=== PATIENT | female | born 1960 | race Caucasian/White ===

== ENCOUNTER 2018-04-15 12:29 | Inpatient (IN) ==
--- NOTE | 2018-04-15 12:41 | Emergency Department Note ---
ED Disposition Clinical Impression: Acute exacerbation of chronic obstructive airways disease, Hypoxia, Dyspnea and respiratory abnormalities Disposition: Admitted as Observation Condition on Discharge: Fair Referrals: Provider,Carlo, [Primary Care Provider] - Time of Disposition: 14:55 - Critical Care Critical Care Time: No Attestation: On , the high probability of a clinically significant, sudden or life threatening deterioration of the following system(s) required my full and direct attention, intervention and personal management. The time I documented below is in addition to time spent performing reported procedures but includes the following listed in this critical care notation. Medical Decision Making - Medical Records Medical records reviewed: Yes: I reviewed the patient's medical records. - Jos Inquiry Pt receiving controlled substance: No Jos was queried for this patient: No Vital Signs: 04/15/18 12:30 04/15/18 13:17 04/15/18 14:24 Temperature 99.4 F Temperature Source Oral Pulse Rate [Right Radial] 94 H 89 Respiratory Rate 24 Blood Pressure [Right Arm] 121/76 119/70 Blood Pressure Mean [Right Arm] 91 86 Blood Pressure Source [Right Arm] Automatic Cuff Automatic Cuff Blood Pressure Position [Right Arm] Sitting 02 Sat by Pulse Oximetry 90 L 96 91 L Oxygen Delivery Method Room Air Nasal Cannula Room Air Oxygen Flow Rate (LPM) 2 - Lab Data Lab results reviewed: Yes: I reviewed the patient's lab results. Lab Results 04/15/18 12:30: WBC 8.1, RBC 5.20, Hgb 15.6, Hct 47.3 H, MCV 91.1, MCH 30.1, MCHC 33.0, RDW 13.9, Plt Count 322, MPV 7.2 L, Neut % (Auto) 66.0, Lymph % (Auto) 28.7, [place] % (Auto) 4.0, Eos % (Auto) 0.2, Baso % (Auto) 1.1, Neut # (Auto) 5.4, Lymph # (Auto) 2.3, [place] # (Auto) 0.3, Eos # (Auto) 0.0, Baso # (Auto) 0.1 04/15/18 12:30: Sodium 133 L, Potassium 3.8, Chloride 99, Carbon Dioxide 20 L, Anion Gap 17.8 H, BUN 23 H, Creatinine 0.96, Estimated Creat Clear 52, Estimated GFR 60, Est GFR ( Amer) 73, Glucose 92, Calcium 9.5, Total Bilirubin 0.5, AST 27, ALT 28, Alkaline Phosphatase 103, Total Protein 8.8 H, Albumin 4.0, Globulin 4.8 H, Albumin/Globulin Ratio 0.8 L 04/15/18 12:45: Influenza Type A Ag Negative, Influenza Type B Ag Negative 04/15/18 14:07: Specimen Source L radial, O2 % Room air, ABG pH 7.39, ABG pCO2 27.8 L, ABG pO2 61.9 L, ABG HCO3 16.3 L, ABG Total CO2 17.2 L, ABG O2 Saturation 90, ABG Base Excess -8.7 L, Hilario Test Acceptable Result diagrams: 04/15/18 12:30 04/15/18 12:30 Orders (Tests/Meds): ED MEDICATIONS Generic Name Dose Route Start Last Admin Trade Name Freq PRN Reason Stop Dose Admin Albuterol/Ipratropium 3 ml 04/15/18 12:45 04/15/18 13:17 Duoneb 3ml [facility] 05/15/18 12:44 3 ml Q1HP PRN Administration Shortness Of Breath Sodium Chloride 3 ml 04/15/18 12:39 Sodium Chloride 3% 15ml [facility] 05/15/18 12:38 ONCE PRN INDUCE SPUTUM COLLECTION Discontinued Medications Generic Name Dose Route Start Last Admin Trade Name Freq PRN Reason Stop Dose Admin Azithromycin 500 mg 04/15/18 14:01 04/15/18 14:17 Zithromax 250mg Tablet PO 04/15/18 14:02 500 mg ONCE ONE Administration Protocol Budesonide 0.5 mg 04/15/18 13:00 04/15/18 13:16 Pulmicort 0.5mg/2ml [facility] 04/15/18 13:01 0.5 mg ONCE ONE Administration Dexamethasone Sodium Phosphate 20 mg 04/15/18 12:44 04/15/18 12:52 Decadron 4mg/Ml 5ml Mdv IV 04/15/18 12:45 20 mg ONCE ONE Administration Fluticasone Propionate 2 puffs 04/15/18 12:42 04/15/18 13:16 Flovent Hfa 110mcg Inhaler 04/15/18 12:43 Not Given ONCE ONE Protocol Lactated Ringer's 1,000 mls @ 999 mls/hr 04/15/18 12:45 04/15/18 14:17 Lactated Ringer's 1000 Ml Bag IV 04/15/18 13:45 999 mls/hr .Q1H1M MARY JO Administration Sodium Chloride 1,000 mls @ 2,000 mls/hr 04/15/18 12:45 04/15/18 12:52 Sod Chlor 0.9% 1000ml Bag IV 04/15/18 13:14 2,000 mls/hr .Q30M MARY JO Administration Lactated Ringer's 1,000 mls @ 2,000 mls/hr 04/15/18 14:15 Lactated Ringer's 1000 Ml Bag IV 04/15/18 14:44 .Q30M MARY JO Miscellaneous 1 unit 04/15/18 12:42 04/15/18 13:16 Aerochamber/Optihaler MC 04/15/18 12:43 Not Given ONCE ONE ORDERS Category Date Time Status Sputum Culture & Gram Stain Stat Micro 04/15/18 13:05 Received ABG [Arterial Blood Gas] Stat RT 04/15/18 14:07 Ordered - Radiology Data #1 Image(s): Chest Exacerbation of COPD hyperinflation no pneumonia seen - ECG Data Tracing #1 I reviewed this ECG and interpreted as documented below: Heart rate 89 normal sinus rhythm with occasional arrhythmia with short KS interval right axis deviation of 105 incomplete right bundle branch block nonspecific ST-T abnormalities no previous EKG ECG initial impression date: 04/15/18 ECG initial impression time: 12:35 Normal Sinus Rhythm: Yes Conduction abnormalities present: RBBB ECG compared to prior tracings: there are no prior tracings available for comparison - Reevaluation(s) Time: 14:04 Reevaluation #1: No evidence of pneumonia on chest x-ray with significant COPD patient's examination shows significantly improved air movement but oxygenation on room air is 90% patient able to walk around but saturations stays at 88-90% Medical Decision Narrative: Differential diagnosis exacerbation of COPD, bronchitis, viral URI, pneumonia General Adult HPI - General Chief complaint: Shortness of Breath/Dyspnea Stated complaint: shortness of breath Time Seen by Provider: 04/15/18 12:38 Mode of Arrival: Ambulatory Source of Information: Patient - History of Present Illness HPI narrative: Patient complains of flulike symptoms with cough and congestion seen in outpat ient clinic and sent in for evaluation of possible pneumonia. Patient is a smoker no history of high fever. Patient complains pain in upper back when coughing Onset (ago): day(s) (5) - Related Data Home Medications Medication Instructions Recorded Confirmed No Known Home Medications 04/15/18 04/15/18 Allergies Allergy/AdvReac Type Severity Reaction Status Date / Time No Known Allergies Allergy Verified 04/15/18 12:40 [facility] History - Hepatitis A Screen Drug use history?: No High risk sexual behaviors?: No History of sexually transmitted infection?: No Currently employed?: Yes Childcare worker?: No Do you have indoor plumbing?: Yes Do you have electricity?: Yes Does patient meet criteria?: Yes Does patient agree to Hepatitis A vaccine administration?: Yes Attestation statement:: This patient has been screened for Hepatitis A risk factors. I have reviewed the patient's past medical history: Yes Medical History: Reports:: Chronic Obstructive Pulmonary Disease (COPD) ROS Obtained: Yes All systems reviewed & no additional complaints - Constitutional Constitutional: Reports as per HPI, Reports fatigue, Reports malaise - Respiratory Respiratory: Yes as per HPI, Yes non-productive cough Physical Exam Very thin 57-year-old female looking older than her stated age. - General General appearance: alert, in no apparent distress - Head Head exam: atraumatic, normocephalic, normal inspection - Eye Eye exam: Present: normal appearance, PERRL, EOMI - ENT ENT exam: Present: normal exam, normal oropharynx, mucous membranes dry, TM's normal bilaterally, normal external ear exam - Neck Neck exam: Present: normal inspection, full ROM, trachea midline. Absent: meningismus, lymphadenopathy - Chest Chest inspection: Present: normal inspection, symmetric chest wall rise. Absent: tenderness - Respiratory Respiratory exam: Present: wheezes, other (Dry cough bibasilar rhonchi and wheezes). Absent: normal lung sounds bilaterally, respiratory distress - Cardiovascular Cardiovascular exam: Present: regular rate, normal rhythm. Absent: JVD - Abdominal Exam Abdominal exam: Present: soft, normal bowel sounds. Absent: distention, tenderness, guarding - Extremities Exam Extremities exam: Present: normal inspection, full ROM, normal capillary refill. Absent: calf tenderness - Back Exam Back exam: Present: normal inspection. Absent: tenderness - Neurological Exam Neurological exam: Present: alert, oriented X3 - Psychiatric Psychiatric exam: Present: normal affect, normal mood - Skin Skin exam: Present: warm, dry, intact, normal color - Lymphatic Lymphatic Findings: no adenopathy
[2018-04-15 12:58] LABS: Basophils # 0.1 K/mm3 (0-0.2); Basophils % 1.1 % (0.1-2.0); Eosinophils % 0.2 % (0.1-12.0); Hematocrit 47.3 % (37.0-47.0); Hemoglobin 15.6 g/dL (12.2-16.2); Lymphocytes # 2.3 K/mm3 (0.7-4.5); Lymphocytes % 28.7 % (10-50); Mean Corpuscular Hemoglobin 30.1 pg (27.0-31.2); Mean Corpuscular Volume 91.1 fl (81-99); Mean Platelet Volume 7.2 fl (7.4-10.4); Monocytes # 0.3 K/mm3 (0.1-1.0); Neutrophils # 5.4 K/mm3 (1.8-7.8); Platelet Count 322 K/mm3 (142-424); Red Cell Distribution Width 13.9 % (11.5-17.5); White Blood Count 8.1 K/mm3 (4.8-10.8)
[2018-04-15 13:10] LABS: Albumin/Globulin Ratio 0.8 (1.1-1.8); Anion Gap 17.8 mEq/L (5-15); Bilirubin,Total 0.5 mg/dL (0.2-1.0); Calcium 9.5 mg/dL (8.5-10.1); Globulin 4.8 gm/dl (1.3-3.2); Potassium 3.8 mmoL/L (3.5-5.1); Total Protein,Serum 8.8 gm/dL (6.4-8.2)
[2018-04-15 14:21] LABS: ABG Base Excess -8.7 mmol/L (-2.4-2.3); ABG HCO3 16.3 mmhg (22.0-26.0); ABG Oxygen Saturation 90 % (90-100); ABG PCO2 27.8 mmhg (35.0-45.0); ABG PH 7.39 mmol/L (7.35-7.45); ABG PO2 61.9 mmhg (80-100); ABG TCO2 17.2 mmhg (23-27); Allen's Test ACCEPTABLE; Oxygen ROOM AIR %
--- NOTE | 2018-04-15 18:45 | History & Physical Report ---
*Admission Date: 04/15/18 *Chief complaint: Shortness of breath and cough *History of present illness: 57-year-old white female who has been to the urgent treatment clinic at the [facility] a couple times over the past weeks with cough and congestion. Diagnosed with bronchitis and given an inhaler. However today was hypoxic at the clinic and brought to the emergency department where she was found to have chronic bronchitis appearance on chest x-ray and found to be hypoxic with O2 saturations in the 87% range. Leukocytosis was not noted but she was noted to be mildly acidotic on admission BMP testing. Admitted to hospital for neb treatments, steroids and enhanced pulmonary toilet. She denies recent fever or sputum production, has been a smoker for many years. [facility] History I have reviewed the patient's past medical history: Yes Medical History: Reports:: Chronic Obstructive Pulmonary Disease (COPD) Denies:: Cancer, Diabetes Mellitus Type 1, Diabetes Mellitus Type 2, MRSA Other Surgeries: Yes: , Tubal Ligation Amputation: No Fractures: No - *Social History Smoking Status: Current every day smoker Tobacco Type: cigarettes Alcohol Intake: never Substance Use Type: marijuana Occupational Status: employed - Psychiatric History Expresses thoughts of harming self/others: None Suicide Plan Description: No Plan Review of Systems - Review of Systems Review of systems:: pertinent systems reviewed and negative unless documented below - Constitutional Reports body ache(s), Reports chills, Denies anorexia - Eyes Denies blind spots, Denies blurry vision - ENT Denies abnormal hearing, Denies bleeding gums - *Cardiovascular Reports shortness of breath, Reports shortness of breath with activity, Denies chest pain, Denies chest pain at rest, Denies irregular heart rhythm, Denies leg swelling - *Respiratory Reports change in phlegm color, Reports chest congestion, Reports cough - *Gastrointestinal Denies abdominal pain, Denies belching, Denies bloating Meds Home Medications Medication Instructions Recorded Confirmed Type No Known Home Medications 04/15/18 04/15/18 History Allergies Allergy/AdvReac Type Severity Reaction Status Date / Time No Known Allergies Allergy Verified 04/15/18 12:40 Exam Vital signs and Labs for Last 24 Hours: Temp Pulse Resp BP Pulse Ox 98.3 F 82 22 125/76 91 L 04/15/18 16:26 04/15/18 16:26 04/15/18 16:26 04/15/18 16:26 04/15/18 16:26 Laboratory Results - last 24 hr 04/15/18 12:30: WBC 8.1, RBC 5.20, Hgb 15.6, Hct 47.3 H, MCV 91.1, MCH 30.1, MCHC 33.0, RDW 13.9, Plt Count 322, MPV 7.2 L, Neut % (Auto) 66.0, Lymph % (Auto) 28.7, [place] % (Auto) 4.0, Eos % (Auto) 0.2, Baso % (Auto) 1.1, Neut # (Auto) 5.4, Lymph # (Auto) 2.3, [place] # (Auto) 0.3, Eos # (Auto) 0.0, Baso # (Auto) 0.1 04/15/18 12:30: Sodium 133 L, Potassium 3.8, Chloride 99, Carbon Dioxide 20 L, Anion Gap 17.8 H, BUN 23 H, Creatinine 0.96, Estimated Creat Clear 52, Estimated GFR 60, Est GFR ( Amer) 73, Glucose 92, Calcium 9.5, Total Bilirubin 0.5, AST 27, ALT 28, Alkaline Phosphatase 103, Total Protein 8.8 H, Albumin 4.0, Globulin 4.8 H, Albumin/Globulin Ratio 0.8 L 04/15/18 12:45: Influenza Type A Ag Negative, Influenza Type B Ag Negative 04/15/18 14:07: Specimen Source L radial, O2 % Room air, ABG pH 7.39, ABG pCO2 27.8 L, ABG pO2 61.9 L, ABG HCO3 16.3 L, ABG Total CO2 17.2 L, ABG O2 Saturation 90, ABG Base Excess -8.7 L, Hilario Test Acceptable I & O for Last 24 hours: Intake & Output 04/13/18 04/14/18 04/15/18 04/16/18 11:59 11:59 11:59 11:59 Intake Total 2360 / 2360 Balance 2360 / 2360 Weight 107 lb 9 oz Microbiology Reports for the Last 24 Hours: Microbiology 04/15/18 13:05 Sputum - Expectorated Sputum Gram Stain - Final Narrative: Patient is pleasant. Talkative. Minimally dyspneic. Rhonchi and crackles in both lower lung [place]. Good air movement. Abdomen soft. No clubbing or edema. Patient has an interesting feature with very short nailbeds but no actual clubbing. I can see no other radial dysgenesis features. 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 Neurologic exam intact. Heart rate regular without murmurs. Assessment and Plan (1) Acute exacerbation of chronic obstructive airways disease Current visit: Yes Status: Acute Category: Medical Code(s): J44.1 - Chronic obstructive pulmonary disease with (acute) exacerbation Admit for IV steroids, abx in ER. (2) Dyspnea and respiratory abnormalities Current visit: Yes Status: Acute Category: Medical Code(s): R06.00 - Dyspnea, unspecified; R06.89 - Other abnormalities of breathing Supplemental oxygen, enhanced pulmonary toilet (3) Hypoxia Current visit: Yes Status: Acute Category: Medical Code(s): R09.02 - Hypoxemia
[2018-04-16 07:10] LABS: Basophils % 0.4 % (0.1-2.0); Eosinophils % 0.1 % (0.1-12.0); Hematocrit 35.2 % (37.0-47.0); Lymphocytes # 1.4 K/mm3 (0.7-4.5); Lymphocytes % 23.2 % (10-50); Mean Corpuscular HGB Conc 33.8 g/dL (31.8-35.4); Mean Corpuscular Hemoglobin 30.4 pg (27.0-31.2); Mean Corpuscular Volume 89.9 fl (81-99); Mean Platelet Volume 7.3 fl (7.4-10.4); Monocytes # 0.1 K/mm3 (0.1-1.0); Monocytes % 1.8 % (1.7-9.3); Neutrophils # 4.6 K/mm3 (1.8-7.8); Neutrophils % 74.5 % (37.0-80.0); Platelet Count 274 K/mm3 (142-424); Red Blood Count 3.92 M/mm3 (4.20-5.40); Red Cell Distribution Width 13.8 % (11.5-17.5); White Blood Count 6.2 K/mm3 (4.8-10.8)
[2018-04-16 07:22] LABS: Albumin Level 3.1 gm/dL (3.4-5.0); Albumin/Globulin Ratio 0.9 (1.1-1.8); Anion Gap 15.9 mEq/L (5-15); Bilirubin,Total 0.4 mg/dL (0.2-1.0); Globulin 3.6 gm/dl (1.3-3.2); Potassium 3.9 mmoL/L (3.5-5.1); Total Protein,Serum 6.7 gm/dL (6.4-8.2)
[2018-04-16 07:25] LABS: Hemoglobin 11.8 g/dL (12.2-16.2)
[2018-04-16 07:35] LABS: Calcium 8.5 mg/dL (8.5-10.1)
--- NOTE | 2018-04-16 08:53 | Discharge Summary ---
General - General Admission date:: 04/15/18 Discharge date: 04/16/18 HPI HPI: 57-year-old white female who has been to the urgent treatment clinic at the [facility] a couple times over the past weeks with cough and congestion. Diagnosed with bronchitis and given an inhaler. However today was hypoxic at the clinic and brought to the emergency department where she was found to have chronic bronchitis appearance on chest x-ray and found to be hypoxic with O2 saturations in the 87% range. Leukocytosis was not noted but she was noted to be mildly acidotic on admission BMP testing. Admitted to hospital for neb treatments, steroids and enhanced pulmonary toilet. She denies recent fever or sputum production, has been a smoker for many years. Hospital Course Hospital Course: Patient was admitted. Placed on p.o. azithromycin and intravenous Solu-Medrol and IV fluids as well as oxygen therapy. She improved slowly but steadily overnight. This morning she feels better. Exam improved and she was able to tolerate being off oxygen with O2 saturations at rest of 92%. Patient has multiple social comorbidities including chronic depression and her chronic smoking history. Plan we did discharge her home with the Advair and albuterol dispensed from our respiratory therapy department. We will prescribe azithromycin and prednisone as well as fluoxetine for her to orange picker at pharmacy today. I will see her in the next 4 days to try to get her hooked up with my health department clinic for noninsured patients. Objective Vital signs: Temp Pulse Resp BP Pulse Ox 97.9 F 70 17 96/51 L 92 L 04/16/18 08:00 04/16/18 08:00 04/16/18 08:00 04/16/18 08:00 04/16/18 08:27 Narrative: Patient is much more comfortable than admission exam. Has some rhonchi bilaterally but no wheezing or crackles. Much better air entry. No clubbing. No cyanosis. Neurologic exam is intact. Heart rate regular. Abdomen soft and nontender. Results Labs on day of discharge: Labs from last 24 hours 04/16/18 04/16/18 04/15/18 06:50 06:50 14:07 WBC 6.2 RBC 3.92 L Hgb 11.8 L D Hct 35.2 L MCV 89.9 MCH 30.4 MCHC 33.8 RDW 13.8 Plt Count 274 MPV 7.3 L Neut % (Auto) 74.5 Lymph % (Auto) 23.2 [place] % (Auto) 1.8 Eos % (Auto) 0.1 Baso % (Auto) 0.4 Neut # (Auto) 4.6 Lymph # (Auto) 1.4 [place] # (Auto) 0.1 Eos # (Auto) 0.0 Baso # (Auto) 0.0 Specimen Source L radial O2 % Room air ABG pH 7.39 ABG pCO2 27.8 L ABG pO2 61.9 L ABG HCO3 16.3 L ABG Total CO2 17.2 L ABG O2 Saturation 90 ABG Base Excess -8.7 L Hilario Test Acceptable Sodium 136 Potassium 3.9 Chloride 101 Carbon Dioxide 23 Anion Gap 15.9 H BUN 15 D Creatinine 0.78 Estimated Creat Clear 63 Estimated GFR 77 Est GFR ( Amer) 93 D Glucose 131 H D Calcium 8.5 D Total Bilirubin 0.4 AST 22 ALT 25 Alkaline Phosphatase 75 Total Protein 6.7 Albumin 3.1 L D Globulin 3.6 H Albumin/Globulin Ratio 0.9 L Influenza Type A Ag Influenza Type B Ag 04/15/18 04/15/18 04/15/18 12:45 12:30 12:30 WBC 8.1 RBC 5.20 Hgb 15.6 Hct 47.3 H MCV 91.1 MCH 30.1 MCHC 33.0 RDW 13.9 Plt Count 322 MPV 7.2 L Neut % (Auto) 66.0 Lymph % (Auto) 28.7 [place] % (Auto) 4.0 Eos % (Auto) 0.2 Baso % (Auto) 1.1 Neut # (Auto) 5.4 Lymph # (Auto) 2.3 [place] # (Auto) 0.3 Eos # (Auto) 0.0 Baso # (Auto) 0.1 Specimen Source O2 % ABG pH ABG pCO2 ABG pO2 ABG HCO3 ABG Total CO2 ABG O2 Saturation ABG Base Excess Hilario Test Sodium 133 L Potassium 3.8 Chloride 99 Carbon Dioxide 20 L Anion Gap 17.8 H BUN 23 H Creatinine 0.96 Estimated Creat Clear 52 Estimated GFR 60 Est GFR ( Amer) 73 Glucose 92 Calcium 9.5 Total Bilirubin 0.5 AST 27 ALT 28 Alkaline Phosphatase 103 Total Protein 8.8 H Albumin 4.0 Globulin 4.8 H Albumin/Globulin Ratio 0.8 L Influenza Type A Ag Negative Influenza Type B Ag Negative DS: Diagnosis - Discharge Diagnosis (1) Acute exacerbation of chronic obstructive airways disease Status: Acute (2) Dyspnea and respiratory abnormalities Status: Resolved (3) Hypoxia Status: Resolved Discharge Plan - Patient Discharge Instructions ACTIVITY: Continue current activity DIET: continue same diet Patient Instructions: DI for Chronic Obstructive Pulmonary Disease - Follow up Plan Follow up with: Moo Hernandez MD [Staff Physician] - 04/20/18 Disposition: Home, Self-Shelter Medications: Home Medications Medication Instructions Recorded Confirmed Type No Known Home Medications 04/15/18 04/15/18 History Azithromycin [Zithromax 250mg 250 mg PO DIRECTED #6 tab 04/16/18 Rx tab] Fluoxetine HCl 20 mg PO DAILY #30 tablet 04/16/18 Rx predniSONE [Deltasone 20mg 20 mg PO BID 7 Days #14 tab 04/16/18 Rx tablet] Prescriptions/Medication Reconciliation: New Ipratropium/Albuterol Sulfate [Combivent Respimat Inh] 2 puff IH QIDRT puff Fluoxetine HCl 20 mg PO DAILY #30 tablet predniSONE [Deltasone 20mg tablet] 20 mg PO BID 7 Days #14 tab Fluticasone/Salmeterol [Fluticasone/Salmeterol 250/50mcg diskus] 1 puffs IH BIDRT inhaler Azithromycin [Zithromax 250mg tab] 250 mg PO DIRECTED #6 tab No Action No Known Home Medications
== END 2018-04-16 10:30 | disposition home or self-care (01) ==
LOC: ER 12:29 → 2ND 15:30
PROVIDERS: ADMIT Internal Medicine Adolescent Medicine; ATTEND Internal Medicine Adolescent Medicine

== ENCOUNTER 2019-09-22 16:20 | Inpatient (IN) | payer MEDICAID, SELFPAY ==
[2019-09-22] VITALS (10 sets, daily range): BP systolic 96–112; BP diastolic 52–71; PULSE 88–131; RESP 20–24; TEMP 36.5–39.4; O2SAT 91–97; BMI 21.9; BMI 20.8
--- NOTE | 2019-09-22 16:25 | HMH.EDGENADL ---
ED Disposition Clinical Impression: Hyponatremia Sepsis Qualifiers: Sepsis type: sepsis due to unspecified organism Sepsis acute organ dysfunction status: with acute organ dysfunction Severe sepsis acute organ dysfunction type: acute respiratory failure Acute respiratory failure type: with hypoxia Severe sepsis shock status: without septic shock Qualified Code(s): A41.9 - Sepsis, unspecified organism Community acquired pneumonia Qualifiers: Laterality: left Lung location: unspecified part of lung Qualified Code(s): J18.9 - Pneumonia, unspecified organism Respiratory failure Qualifiers: Chronicity: acute Respiratory failure complication: hypoxia Qualified Code(s): J96.01 - Acute respiratory failure with hypoxia Disposition: Admitted As Inpatient Condition on Discharge: Serious - Critical Care Critical Care Time: Yes Attestation: On , the high probability of a clinically significant, sudden or life threatening deterioration of the following system(s) required my full and direct attention, intervention and personal management. The time I documented below is in addition to time spent performing reported procedures but includes the following listed in this critical care notation. Total Critical Care Time: 35 Vital system(s) involved:: Respiratory Failure My critical care processes included: Assessment & monitoring of V/S, Initial and Re-exams, Data Review/Interpretation, Coordinating Care, Medication Orders and management, Documentation Medical Decision Making - Medical Records Medical records reviewed: Yes: I reviewed the patient's medical records. - Jos Inquiry Pt receiving controlled substance: No Vital Signs: 09/22/19 16:22 09/22/19 16:56 09/22/19 17:22 Temperature 102.9 F H Temperature Source Oral Pulse Rate Pulse Rate [Right Radial] 131 H 117 H 120 H Respiratory Rate 20 Blood Pressure Blood Pressure [Right Arm] 107/63 L 98/63 L 112/71 Blood Pressure Mean [Right Arm] 77 74 84 Blood Pressure Source [Right Arm] Automatic Cuff Automatic Cuff Automatic Cuff Blood Pressure Position [Right Arm] Sitting Sitting Sitting 02 Sat by Pulse Oximetry 91 L 95 97 Oxygen Delivery Method Room Air Nasal Cannula Nasal Cannula Oxygen Flow Rate (LPM) 2 2 09/22/19 18:02 09/22/19 18:26 09/22/19 18:47 Temperature 100.0 F H Temperature Source Pulse Rate 94 H Pulse Rate [Right Radial] 97 H 102 H Respiratory Rate 22 Blood Pressure 96/52 L Blood Pressure [Right Arm] 101/58 L 96/52 L Blood Pressure Mean [Right Arm] 72 66 Blood Pressure Source [Right Arm] Automatic Cuff Automatic Cuff Blood Pressure Position [Right Arm] Sitting Sitting 02 Sat by Pulse Oximetry 95 93 L Oxygen Delivery Method Nasal Cannula Nasal Cannula Nasal Cannula Oxygen Flow Rate (LPM) 2 2 - Lab Data Lab results reviewed: Yes: I reviewed the patient's lab results. Lab Results 09/22/19 16:24: WBC 18.2 H, RBC 4.41, Hgb 13.6, Hct 39.2, MCV 88.8, MCH 30.8, MCHC 34.7, RDW 14.0, Plt Count 302, MPV 8.3, Neut % (Auto) 93.2 H, Lymph % (Auto) 2.3 L, [place] % (Auto) 3.2, Eos % (Auto) 0.1, Baso % (Auto) 1.3, Neut # (Auto) 16.9 H, Lymph # (Auto) 0.4 L, [place] # (Auto) 0.6, Eos # (Auto) 0.0, Baso # (Auto) 0.2, Total Counted 100, Neutrophils % (Manual) 92 H, Band Neutrophils % 3.0, Lymphocytes % (Manual) 4 L, Monocytes % (Manual) 1 L, Platelet Estimate Normal, RBC Morphology Normal, ESR 82 H 09/22/19 16:24: Sodium 127 L, Potassium 3.4 L, Chloride 93 L, Carbon Dioxide 20 L, Anion Gap 17.4 H, BUN 20 H, Creatinine 1.00, Estimated Creat Clear 53, Estimated GFR 57 L, Est GFR ( Amer) 69, Glucose 99, Calcium 8.8, Total Bilirubin 0.5, AST 133 H, ALT 63, Alkaline Phosphatase 118, C-Reactive Protein 368.2 H, Total Protein 7.3, Albumin 3.4 L, Globulin 3.9 H, Albumin/Globulin Ratio 0.9 L 09/22/19 16:24: Lactate 1.4 09/22/19 16:24: Influenza Type A Ag Negative, Influenza Type B Ag Negative 09/22/19 16:24: Group A Strep Rapid Negative 09/22/19 16:24: KYRIE
--- NOTE | 2019-09-22 16:31 | XR_ITS ---
PROCEDURE: XR CHEST PORTABLE CLINICAL HISTORY: soa Shortness of air COMPARISON: CXR2V XR chest 2V from 04/15/2018 FINDINGS: The cardiomediastinal silhouette and pulmonary vascularity are within normal limits. There is extensive pneumonia in the left lower lobe and in the left midlung with sparing of the left apex. The right lung is clear. No obvious effusions. No acute bony abnormalities. IMPRESSION: Extensive left-sided pneumonia Dictated by: Hilario Means MD 09/22/2019 18:15 Electronically signed by Hilario Means MD in [place] 09/22/2019 18:15
--- NOTE | 2019-09-22 16:38 | PC.NURSE ---
RT at bedside
[2019-09-22 16:44] LABS: Chloride 93 mmol/L (98-107); Potassium 3.4 mmoL/L (3.5-5.1); Sodium 127 mmol/L (136-145)
[2019-09-22 16:45] LABS: ABG Base Excess -9.8 mmol/L (-2.4-2.3); ABG HCO3 14.2 mmhg (22.0-26.0); ABG Oxygen Saturation 97 % (90-100); ABG PCO2 21.2 mmhg (35.0-45.0); ABG PH 7.45 mmol/L (7.35-7.45); ABG PO2 91.8 mmhg (80-100); ABG TCO2 14.9 mmhg (23-27)
[2019-09-22 16:45] LABS: Basophils # 0.2 K/mm3 (0-0.2); Basophils % 1.3 % (0.1-2.0); Eosinophils % 0.1 % (0.1-12.0); Hematocrit 39.2 % (37.0-47.0); Hemoglobin 13.6 g/dL (12.2-16.2); Lymphocytes # 0.4 K/mm3 (0.7-4.5); Lymphocytes % 2.3 % (10-50); Mean Corpuscular HGB Conc 34.7 g/dL (31.8-35.4); Mean Corpuscular Hemoglobin 30.8 pg (27.0-31.2); Mean Corpuscular Volume 88.8 fl (81-99); Mean Platelet Volume 8.3 fl (7.4-10.4); Monocytes # 0.6 K/mm3 (0.1-1.0); Monocytes % 3.2 % (1.7-9.3); Neutrophils # 16.9 K/mm3 (1.8-7.8); Neutrophils % 93.2 % (37.0-80.0); Platelet Count 302 K/mm3 (142-424); Red Blood Count 4.41 M/mm3 (4.20-5.40); White Blood Count 18.2 K/mm3 (4.8-10.8)
[2019-09-22 16:47] LABS: Alanine Aminotransferase 63 U/L (12-78); Albumin Level 3.4 g/dl (3.5-5.0); Albumin/Globulin Ratio 0.9 (1.1-1.8); Alkaline Phosphatase 118 U/L (38-126); Anion Gap 17.4 mEq/L (5-15); Aspartate Amino Transferase 133 U/L (14-36); Bilirubin,Total 0.5 mg/dl (0.2-1.3); Blood Urea Nitrogen 20 mg/dl (7-17); Calcium 8.8 mg/dl (8.4-10.2); Carbon Dioxide 20 mmol/L (22.0-30.0); Creatinine Clearance Estimated 53 mL/min (50-200); Estimated Glomerular Filt Rate 57 ml/min (>60); GFR (African American) 69 ML/MIN (>60); Globulin 3.9 g/dL (1.3-3.2); Glucose 99 mg/dl (74-100); Total Protein,Serum 7.3 g/dl (6.3-8.2)
[2019-09-22 16:48] LABS: Lactic Acid 1.4 mmol/L (0.7-2.1)
[2019-09-22 16:48] LABS: Allen's Test Acceptable; Source Left Radial
[2019-09-22 16:52] LABS: Strep Scrn Group A (Rapid) Negative (Negative)
[2019-09-22 16:54] LABS: MANUAL DIFFERENTIAL MANUAL DIFFERENTIAL (MANUAL DIFF)
[2019-09-22 17:40] LABS: Coronavirus 19 IgG Antibody Negative (Negative); Coronavirus 19 IgM Antibody Negative (Negative)
[2019-09-22 17:59] LABS: C-Reactive Protein 368.2 mg/L (0-4)
--- NOTE | 2019-09-22 18:12 | PC.NURSE ---
SPEAKING WITH DR MCKEON AT THIS TIME.
[2019-09-22 18:30] LABS: Lymphocytes % 4 % (10-50); Monocytes % 1 % (2-9); Neutrophils % 92 % (42-76); Platelet Estimate Normal; RBC Morphology Normal; Total Cells Counted 100
[2019-09-22 18:32] LABS: Erythrocyte Sedimentation Rate 82 mm/hr (0-30)
--- NOTE | 2019-09-22 18:59 | PC.NURSE ---
Patient arrived to floor via wheelchair.
--- NOTE | 2019-09-22 19:11 | PC.NURSE ---
report given to mark
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
--- NOTE | 2019-09-22 21:57 | PC.NURSE ---
RT gave pt a nebulizer treatment with sodium chloride to induce SPT. pt. unable to cough up anything at this time.
[2019-09-23] VITALS (9 sets, daily range): BP systolic 90–105; BP diastolic 52–65; PULSE 64–100; RESP 16–20; TEMP 36.7–37.4; O2SAT 90–95; BMI 21.0
--- NOTE | 2019-09-23 04:46 | PC.NURSE ---
Pt new admit this shift for Sepsis/PNA. Pt has rested well since admission. No complaints since arrival. Ambulating w/ standby assist to BR and voiding clear, dark yellow urine. Tolerating 2LNC well. Pt educated on IS, returned demonstration. Refused TEDS. Pt was able to produce a sputum sample this shift. Will continue to monitor.
[2019-09-23 05:42] LABS: Basophils # 0.2 K/mm3 (0-0.2); Basophils % 0.9 % (0.1-2.0); Eosinophils % 0.1 % (0.1-12.0); Hematocrit 33.5 % (37.0-47.0); Lymphocytes # 0.4 K/mm3 (0.7-4.5); Lymphocytes % 2.4 % (10-50); Mean Corpuscular HGB Conc 34.3 g/dL (31.8-35.4); Mean Corpuscular Hemoglobin 30.4 pg (27.0-31.2); Mean Corpuscular Volume 88.9 fl (81-99); Mean Platelet Volume 8.6 fl (7.4-10.4); Monocytes # 0.9 K/mm3 (0.1-1.0); Monocytes % 5.4 % (1.7-9.3); Neutrophils # 15.9 K/mm3 (1.8-7.8); Neutrophils % 91.2 % (37.0-80.0); Platelet Count 266 K/mm3 (142-424); Red Blood Count 3.77 M/mm3 (4.20-5.40); Red Cell Distribution Width 14.2 % (11.5-17.5); White Blood Count 17.4 K/mm3 (4.8-10.8)
[2019-09-23 05:45] LABS: Hemoglobin 11.5 g/dL (12.2-16.2)
[2019-09-23 05:46] LABS: MANUAL DIFFERENTIAL MANUAL DIFFERENTIAL (MANUAL DIFF)
[2019-09-23 06:01] LABS: Anion Gap 14.9 mEq/L (5-15); Blood Urea Nitrogen 16 mg/dl (7-17); Calcium 8.3 mg/dl (8.4-10.2); Carbon Dioxide 18 mmol/L (22.0-30.0); Chloride 101 mmol/L (98-107); Creatinine Clearance Estimated 73 mL/min (50-200); Estimated Glomerular Filt Rate 86 ml/min (>60); GFR (African American) 104 ML/MIN (>60); Glucose 82 mg/dl (74-100); Potassium 3.9 mmoL/L (3.5-5.1); Sodium 130 mmol/L (136-145)
--- NOTE | 2019-09-23 06:42 | PC.NURSE ---
IS best of 1000 this shift
[2019-09-23 07:24] LABS: Lymphocytes % 2 % (10-50); Monocytes % 7 % (2-9); Neutrophils % 91 % (42-76); Total Cells Counted 100
[2019-09-23 07:25] LABS: Platelet Estimate Normal; RBC Morphology Normal
--- NOTE | 2019-09-23 08:48 | P.CONPHA_ITS ---
[facility] Pharmacy VTE Monitoring - Patient Demographics Admission date: 09/22/19 Report Date: 09/23/19 Time: 08:48 Allergies/Adverse Reactions: Patient Allergies No Known Allergies Allergy (Verified 05/04/18 16:15) Height: 1.57 m Weight: 51.908 kg Patient Problems: Current Active Problems Sepsis (Acute) Community acquired pneumonia (Acute) Respiratory failure (Acute) Hyponatremia (Acute) Hearing loss (Acute) Tobacco abuse (Acute) - VTE Risk Labs: VTE Related Lab Results Hgb 11.5 g/dL (12.2-16.2) L D 09/23/19 05:15 Hct 33.5 % (37.0-47.0) L 09/23/19 05:15 Plt Count 266 K/mm3 (142-424) 09/23/19 05:15 BUN 16 mg/dl (7-17) 09/23/19 05:15 Creatinine 0.70 mg/dl (0.52-1.04) D 09/23/19 05:15 Estimated Creat Clear 73 mL/min (50-200) 09/23/19 05:15 Was VTE Risk Assessment Performed: Yes VTE Score: 2 VTE Risk Level: Very Low Risk - Prophylaxis VTE Prophylaxis Ordered?: Yes Types of VTE Prophylaxis: TEDS Knee High Location of Applied Device: Bilateral Lower Extremeties - VTE Diagnosis Confirmed Treatment or plan recommended: Continue Current Treatment
[2019-09-23 11:24] LABS: Adenovirus,PCR Not Detected (NotDetected); Bordetella Pertussis Not Detected (NotDetected); Chlamydophila Pneumoniae, PCR Not Detected (NotDetected); Coronavirus 19, PCR Not Detected (NotDetected); Coronavirus 229E Not Detected (NotDetected); Coronavirus NL63 Not Detected (NotDetected); Coronavirus OC43 Not Detected (NotDetected); Coronovirus HKU1,PCR Not Detected (NotDetected); Human Metapneumovirus Not Detected (NotDetected); Influenza A, PCR Not Detected (NotDetected); Influenza AH1, 2009 Not Detected (NotDetected); Influenza AH1, PCR Not Detected (NotDetected); Influenza AH3,PCR Not Detected (NotDetected); Influenza B, PCR Not Detected (NotDetected); Mycoplasma Pneumoniae, PCR Not Detected (NotDected); Parainfluenza 1, PCR Not Detected (NotDetected); Parainfluenza 2, PCR Not Detected (NotDetected); Parainfluenza 3, PCR Not Detected (NotDetected); Parainfluenza 4, PCR Not Detected (NotDetected); Respiratory Syncytial Virus Not Detected (NotDetected); Rhinovirus/Enterovirus Not Detected (NotDetected)
--- NOTE | 2019-09-23 13:24 | PC.NURSE ---
Pt refused bath, states she is too weak to take bath today. Offered to help pt w/ bed-bath in which she also declined. Stated to patient that I would check back later this shift to see if she would like a bath then.
--- NOTE | 2019-09-23 16:12 | HMH.ACPN2 ---
Internal Medicine - PN: Subj *Date: 09/23/19 *Time: 16:12 Interval history: This morning I was contacted by Dr. Hooker in the emergency room. He noted a recent patient who had been negative for IgM IgG but subsequently was tested for rapid COVID-19 and showed positive. He suggested that we might test Ms. Vieyra accordingly. This was done this morning and her rapid COVID 19 PCR was negative. She continues to improve. Her cough is still not productive. Exam Vital signs and Labs for Last 24 Hours: Temp Pulse Resp BP Pulse Ox 98.9 F 64 20 102/60 L 90 L 09/23/19 12:00 09/23/19 12:00 09/23/19 12:00 09/23/19 12:00 09/23/19 12:00 Laboratory Results - last 24 hr 09/22/19 16:24: WBC 18.2 H, RBC 4.41, Hgb 13.6, Hct 39.2, MCV 88.8, MCH 30.8, MCHC 34.7, RDW 14.0, Plt Count 302, MPV 8.3, Neut % (Auto) 93.2 H, Lymph % (Auto) 2.3 L, [place] % (Auto) 3.2, Eos % (Auto) 0.1, Baso % (Auto) 1.3, Neut # (Auto) 16.9 H, Lymph # (Auto) 0.4 L, [place] # (Auto) 0.6, Eos # (Auto) 0.0, Baso # (Auto) 0.2, Total Counted 100, Neutrophils % (Manual) 92 H, Band Neutrophils % 3.0, Lymphocytes % (Manual) 4 L, Monocytes % (Manual) 1 L, Platelet Estimate Normal, RBC Morphology Normal, ESR 82 H 09/22/19 16:24: Sodium 127 L, Potassium 3.4 L, Chloride 93 L, Carbon Dioxide 20 L, Anion Gap 17.4 H, BUN 20 H, Creatinine 1.00, Estimated Creat Clear 53, Estimated GFR 57 L, Est GFR ( Amer) 69, Glucose 99, Calcium 8.8, Total Bilirubin 0.5, AST 133 H, ALT 63, Alkaline Phosphatase 118, C-Reactive Protein 368.2 H, Total Protein 7.3, Albumin 3.4 L, Globulin 3.9 H, Albumin/Globulin Ratio 0.9 L 09/22/19 16:24: Lactate 1.4 09/22/19 16:24: Influenza Type A Ag Negative, Influenza Type B Ag Negative 09/22/19 16:24: Group A Strep Rapid Negative 09/22/19 16:24: SARS-CoV-2 IgG Ab (Rapid) Negative, SARS-CoV-2 IgM Ab (Rapid) Negative 09/22/19 16:32: Specimen Source Left radial, O2 % 3lpm nc, ABG pH 7.45, ABG pCO2 21.2 L, ABG pO2 91.8, ABG HCO3 14.2 L, ABG Total CO2 14.9 L, ABG O2 Saturation 97, ABG Base Excess -9.8 L, Hilario Test Acceptable 09/23/19 05:15: WBC 17.4 H, RBC 3.77 L, Hgb 11.5 L D, Hct 33.5 L, MCV 88.9, MCH 30.4, MCHC 34.3, RDW 14.2, Plt Count 266, MPV 8.6, Neut % (Auto) 91.2 H, Lymph % (Auto) 2.4 L, [place] % (Auto) 5.4, Eos % (Auto) 0.1, Baso % (Auto) 0.9, Neut # (Auto) 15.9 H, Lymph # (Auto) 0.4 L, [place] # (Auto) 0.9, Eos # (Auto) 0.0, Baso # (Auto) 0.2, Total Counted 100, Neutrophils % (Manual) 91 H, Lymphocytes % (Manual) 2 L, Monocytes % (Manual) 7, Platelet Estimate Normal, RBC Morphology Normal 09/23/19 05:15: Sodium 130 L, Potassium 3.9, Chloride 101, Carbon Dioxide 18 L, Anion Gap 14.9, BUN 16, Creatinine 0.70 D, Estimated Creat Clear 73, Estimated GFR 86, Est GFR ( Amer) 104 D, Glucose 82, Calcium 8.3 L 09/23/19 11:15: Chlamy pneumoniae PCR Not detected, Adenovirus (PCR) Not detected, B. pertussis DNA (PCR) Not detected, Coronavirus OC43 (PCR) Not detected, Coronavirus HKU1 (PCR) Not detected, Coronavirus 229E (PCR) Not detected, COVID-19 PCR Not detected, Coronavirus NL63 (PCR) Not detected, Human Metapneumovir PCR Not detected, Influenza A (H1) PCR Not detected, Influ A (H1N1/09) PCR Not detected, Influenza A (H3) PCR Not detected, Influenza Type A (PCR) Not detected, Influenza Type B (PCR) Not detected, M. pneumoniae (PCR) Not detected, Parainfluenza 1 (PCR) Not detected, Parainfluenza 2 (PCR) Not detected, Parainfluenza 3 (PCR) Not detected, Parainfluenza 4 (PCR) Not detected, RSV (PCR) Not detected, Entero/Rhino (PCR) Not detected I & O for Last 24 hours: Intake & Output 09/21/19 09/22/19 09/23/19 09/24/19 11:59 11:59 11:59 11:59 Intake Total 1474 / 1474 120 / 120 Output Total 701 / 701 600 / 600 Balance 773 / 773 -480 / -480 Weight 114 lb 7 oz Microbiology Reports for the Last 24 Hours: Microbiology 09/23/19 00:50 Sputum - Expectorated Sputum Gram Stain - Final - Constitutional no acute distress (She acts like she feels better
--- NOTE | 2019-09-23 18:16 | PC.NURSE ---
PT IS RESTING IN BED. NO COMPLAINTS OF DISCOMFORT OR SOA. AMBULATED TO THE BATHROOM WITH A STANDBY ASSIST. EATING AND DRINKING FAIR. LUNG SOUNDS HAVE SCATTERED RHONCHI. ABDOMEN SOFT/NONTENDER WITH ACTIVE BOWEL SOUNDS. O2 SATURATION HAS MAINTAINED IN THE MID 90'S 2 L NC. WILL CONTINUE TO MONITOR.
[2019-09-24] VITALS (9 sets, daily range): BP systolic 95–112; BP diastolic 51–67; PULSE 53–104; RESP 16–22; TEMP 36.4–36.8; O2SAT 92–100; BMI 21.0
--- NOTE | 2019-09-24 04:34 | PC.NURSE ---
Pt slept in longer intervals this shift w/ no complaints reported to staff. Ambulating w/ standby assist to BR and voiding w/o issues. Tolerating 2LNC well and RA sat of 94% obtained at rest. Tolerating PO intake. VSS.
--- NOTE | 2019-09-24 08:41 | XR_ITS ---
PROCEDURE: XR CHEST 2V CLINICAL HISTORY: pneumonia follow-up COMPARISON: CXR2V XR chest 2V from 04/15/2018 XR CHEST PORTABLE from 09/22/2019 FINDINGS: The cardiomediastinal silhouette and pulmonary vascularity are within normal limits. Left upper lobe and lingular pneumonia once again noted not significantly changed. There are small bilateral pleural effusions which have developed in the interval. Changes of COPD noted. No acute bony abnormalities. IMPRESSION: No change left upper lobe and lingular pneumonia. Interval development of small bilateral pleural effusions Dictated by: Hilario Means MD 09/24/2019 09:48 Electronically signed by Hilario Means MD in [place] 09/24/2019 09:48
[2019-09-24 10:08] LABS: Basophils # 0.1 K/mm3 (0-0.2); Basophils % 0.7 % (0.1-2.0); Eosinophils % 0.1 % (0.1-12.0); Hematocrit 29.6 % (37.0-47.0); Hemoglobin 10.5 g/dL (12.2-16.2); Lymphocytes % 6.5 % (10-50); Mean Corpuscular HGB Conc 35.4 g/dL (31.8-35.4); Mean Corpuscular Hemoglobin 30.8 pg (27.0-31.2); Mean Corpuscular Volume 87.2 fl (81-99); Mean Platelet Volume 8.5 fl (7.4-10.4); Monocytes # 0.9 K/mm3 (0.1-1.0); Monocytes % 5.9 % (1.7-9.3); Neutrophils # 12.8 K/mm3 (1.8-7.8); Neutrophils % 86.9 % (37.0-80.0); Platelet Count 257 K/mm3 (142-424); Red Cell Distribution Width 14.4 % (11.5-17.5); White Blood Count 14.8 K/mm3 (4.8-10.8)
[2019-09-24 10:11] LABS: MANUAL DIFFERENTIAL MANUAL DIFFERENTIAL (MANUAL DIFF)
[2019-09-24 10:41] LABS: Chloride 109 mmol/L (98-107); Potassium 3.3 mmoL/L (3.5-5.1); Sodium 134 mmol/L (136-145)
[2019-09-24 10:44] LABS: Anion Gap 10.3 mEq/L (5-15); Blood Urea Nitrogen 9 mg/dl (7-17); Carbon Dioxide 18 mmol/L (22.0-30.0); Creatinine Clearance Estimated 85 mL/min (50-200); Estimated Glomerular Filt Rate 103 ml/min (>60); GFR (African American) 125 ML/MIN (>60)
[2019-09-24 10:45] LABS: Calcium 8.3 mg/dl (8.4-10.2); Glucose 107 mg/dl (74-100)
[2019-09-24 11:12] LABS: Lymphocytes % 5 % (10-50); Monocytes % 1 % (2-9); Neutrophils % 89 % (42-76); Total Cells Counted 100
[2019-09-24 11:13] LABS: Platelet Estimate Normal; RBC Morphology Normal
--- NOTE | 2019-09-24 13:28 | HMH.ACPN2 ---
Internal Medicine - PN: Beck *Date: 09/24/19 *Time: 13:28 Interval history: Clinically she is significantly improved. Her chest x-ray does not yet show much improvement, in fact it suggests some bilateral small pleural effusions. Exam Vital signs and Labs for Last 24 Hours: Temp Pulse Resp BP Pulse Ox 97.5 F L 104 H 22 97/51 L 92 L 09/24/19 08:00 09/24/19 09:56 09/24/19 08:00 09/24/19 08:00 09/24/19 08:00 Laboratory Results - last 24 hr 09/24/19 09:30: WBC 14.8 H, RBC 3.40 L, Hgb 10.5 L, Hct 29.6 L, MCV 87.2, MCH 30.8, MCHC 35.4, RDW 14.4, Plt Count 257, MPV 8.5, Neut % (Auto) 86.9 H, Lymph % (Auto) 6.5 L, [place] % (Auto) 5.9, Eos % (Auto) 0.1, Baso % (Auto) 0.7, Neut # (Auto) 12.8 H, Lymph # (Auto) 1.0, [place] # (Auto) 0.9, Eos # (Auto) 0.0, Baso # (Auto) 0.1, Total Counted 100, Neutrophils % (Manual) 89 H, Band Neutrophils % 2.0, Lymphocytes % (Manual) 5 L, Monocytes % (Manual) 1 L, Metamyelocytes % 3.0 H, Platelet Estimate Normal, RBC Morphology Normal 09/24/19 09:30: Sodium 134 L, Potassium 3.3 L, Chloride 109 H, Carbon Dioxide 18 L, Anion Gap 10.3, BUN 9 D, Creatinine 0.60, Estimated Creat Clear 85, Estimated GFR 103, Est GFR ( Amer) 125 D, Glucose 107 H, Calcium 8.3 L I & O for Last 24 hours: Intake & Output 09/22/19 09/23/19 09/24/19 09/25/19 11:59 11:59 11:59 11:59 Intake Total 1474 / 1474 2884 / 2884 360 / 360 Output Total 701 / 701 800 / 800 Balance 773 / 773 2084 / 2084 360 / 360 Weight 114 lb 7 oz 114 lb 7.001 oz Microbiology Reports for the Last 24 Hours: Microbiology 09/22/19 16:24 Throat Group A Streptococcus Screen (FRANK) - Final Negative for Group A Streptococcus. 09/23/19 00:50 Sputum - Expectorated Sputum Gram Stain - Final 09/23/19 00:50 Sputum - Expectorated Sputum Sputum Culture - Preliminary - Constitutional no acute distress (Obviously feels better.) - *Routine Respiratory Exam Present: decreased breath sounds (Much better air movement on the left than she had on presentation.) - *Routine Cardiovascular Exam Present: RRR - *Routine Extremities Exam Absent: edema Assessment and Plan (1) Community acquired pneumonia Current visit: Yes Status: Acute Qualifiers: Laterality: left Lung location: unspecified part of lung Qualified Code(s): J18.9 - Pneumonia, unspecified organism Category: Medical Code(s): J18.9 - Pneumonia, unspecified organism (2) Respiratory failure Current visit: Yes Status: Acute Qualifiers: Chronicity: acute Respiratory failure complication: hypoxia Qualified Code(s): J96.01 - Acute respiratory failure with hypoxia Category: Medical Code(s): J96.90 - Respiratory failure, unspecified, unspecified whether with hypoxia or hypercapnia (3) Hyponatremia Current visit: Yes Status: Acute Category: Medical Code(s): E87.1 - Hypo-osmolality and hyponatremia (4) Sepsis Current visit: Yes Status: Acute Qualifiers: Sepsis type: sepsis due to unspecified organism Sepsis acute organ dysfunction status: with acute organ dysfunction Severe sepsis acute organ dysfunction type: acute respiratory failure Acute respiratory failure type: with hypoxia Severe sepsis shock status: without septic shock Qualified Code(s): A41.9 - Sepsis, unspecified organism; R65.20 - Severe sepsis without septic shock; J96.01 - Acute respiratory failure with hypoxia Category: Medical Code(s): A41.9 - Sepsis, unspecified organism (5) Acute exacerbation of chronic obstructive airways disease Current visit: No Status: Acute Category: Medical Code(s): J44.1 - Chronic obstructive pulmonary disease with (acute) exacerbation (6) Dyspnea and respiratory abnormalities Current visit: No Status: Resolved Category: Medical Code(s): R06.00 - Dyspnea, unspecified; R06.89 - Other abnormalities of breathing (7) Hypoxia Current visit: No Status: Resolved Catego
--- NOTE | 2019-09-24 17:53 | PC.NURSE ---
No acute changes noted this shift, pt has been on RA for most of shift today, no c/o of SOA or difficulty breathing, lung sounds reveal fine crackles in BL bases, no s/s of distress noted, vital signs remain stable, will continue to monitor.
[2019-09-25] VITALS (10 sets, daily range): BP systolic 93–127; BP diastolic 50–70; PULSE 67–106; RESP 17–18; TEMP 36.5–36.8; O2SAT 94–96; BMI 21.0
--- NOTE | 2019-09-25 00:22 | PC.NURSE ---
Addendum entered by Tiffani Nicholas RN 09/25/19 04:58: Upper left anterior field with distinct fine crackles, not right as previously recorded. Original Note: Vital signs wnl, BP on the low side, afebrile. ABX infused well with no problems. Pt had dry, nonproductive cough, although able to give sputum sample last night. Pt is pleasant and cooperative with POC. Upper right anterior lung field with crackles, encouraged pt to use I/S and witnessed pt using x 3 thus far. Nothing acute to report, remains safe, call light w/i reach, monitoring continues.
--- NOTE | 2019-09-25 06:54 | PC.NURSE ---
No changes from previous note, pt remained safe, monitoring continues.
--- NOTE | 2019-09-25 07:11 | PC.NURSE ---
Lab with critical hgb 7.6 & Hct 25.1. Monica Montoya RN reported to Dr Chandler.
--- NOTE | 2019-09-25 08:43 | HMH.ACPN2 ---
Internal Medicine - PN: Subj *Date: 09/25/19 *Time: 08:43 Interval history: Patient states she feels better. She continues with a dry cough. Her breathing is stable. She continues with aerosol treatments. She denies chest pain. She states she is a picky eater. Bowels are moving and she is voiding QS. She is able to ambulate in the room and has been sitting in the chair at bedside. Patient states she is not going to smoke anymore. Exam Vital signs and Labs for Last 24 Hours: Temp Pulse Resp BP Pulse Ox 97.9 F 86 18 115/61 94 L 09/25/19 07:55 09/25/19 07:55 09/25/19 07:55 09/25/19 07:55 09/25/19 07:55 Laboratory Results - last 24 hr 09/24/19 09:30: WBC 14.8 H, RBC 3.40 L, Hgb 10.5 L, Hct 29.6 L, MCV 87.2, MCH 30.8, MCHC 35.4, RDW 14.4, Plt Count 257, MPV 8.5, Neut % (Auto) 86.9 H, Lymph % (Auto) 6.5 L, [place] % (Auto) 5.9, Eos % (Auto) 0.1, Baso % (Auto) 0.7, Neut # (Auto) 12.8 H, Lymph # (Auto) 1.0, [place] # (Auto) 0.9, Eos # (Auto) 0.0, Baso # (Auto) 0.1, Total Counted 100, Neutrophils % (Manual) 89 H, Band Neutrophils % 2.0, Lymphocytes % (Manual) 5 L, Monocytes % (Manual) 1 L, Metamyelocytes % 3.0 H, Platelet Estimate Normal, RBC Morphology Normal 09/24/19 09:30: Sodium 134 L, Potassium 3.3 L, Chloride 109 H, Carbon Dioxide 18 L, Anion Gap 10.3, BUN 9 D, Creatinine 0.60, Estimated Creat Clear 85, Estimated GFR 103, Est GFR ( Amer) 125 D, Glucose 107 H, Calcium 8.3 L I & O for Last 24 hours: Intake & Output 09/22/19 09/23/19 09/24/19 09/25/19 11:59 11:59 11:59 11:59 Intake Total 1474 / 1474 2884 / 2884 1068 / 1068 Output Total 701 / 701 800 / 800 620 / 620 Balance 773 / 773 2084 / 2084 448 / 448 Weight 114 lb 7 oz 114 lb 7.001 oz 114 lb 7.001 oz Microbiology Reports for the Last 24 Hours: Microbiology 09/22/19 16:24 Blood Blood Culture - Preliminary NO GROWTH AFTER 48 HOURS 09/22/19 16:24 Blood Blood Culture - Preliminary NO GROWTH AFTER 48 HOURS 09/22/19 16:24 Throat Group A Streptococcus Screen (FRANK) - Final Negative for Group A Streptococcus. 09/23/19 00:50 Sputum - Expectorated Sputum Gram Stain - Final 09/23/19 00:50 Sputum - Expectorated Sputum Sputum Culture - Preliminary - Constitutional no acute distress - *Routine Respiratory Exam Comments: Few bibasilar crackles. Bilateral crackles anteriorly. - *Routine Cardiovascular Exam Present: RRR - *Routine Abdominal Exam Present: soft, normoactive bowel sounds. Absent: tenderness - *Routine Extremities Exam Absent: edema, calf tenderness - *Routine Neurological Exam Present: alert, oriented X3 Conversant without shortness of breath Assessment and Plan (1) Community acquired pneumonia Current visit: Yes Status: Acute Qualifiers: Laterality: left Lung location: unspecified part of lung Qualified Code(s): J18.9 - Pneumonia, unspecified organism Category: Medical Code(s): J18.9 - Pneumonia, unspecified organism (2) Respiratory failure Current visit: Yes Status: Acute Qualifiers: Chronicity: acute Respiratory failure complication: hypoxia Qualified Code(s): J96.01 - Acute respiratory failure with hypoxia Category: Medical Code(s): J96.90 - Respiratory failure, unspecified, unspecified whether with hypoxia or hypercapnia (3) Hyponatremia Current visit: Yes Status: Acute Category: Medical Code(s): E87.1 - Hypo-osmolality and hyponatremia (4) Sepsis Current visit: Yes Status: Acute Qualifiers: Sepsis type: sepsis due to unspecified organism Sepsis acute organ dysfunction status: with acute organ dysfunction Severe sepsis acute organ dysfunction type: acute respiratory failure Acute respiratory failure type: with hypoxia Severe sepsis shock status: without septic shock Qualified Code(s): A41.9 - Sepsis, unspecified organism; R65.20 - Severe
--- NOTE | 2019-09-25 16:20 | PC.NURSE ---
PT HAS MAINTAINED O2 SAT ABOVE 94% ON ROOM AIR SINCE REMOVED 02 THIS AM. LUNGS SOUNDS DIMINISHED WITH SCATTERED CRACKLES. PT REPORTS NO SHORTNESS OF AIR OR DIFFICULTY BREATHING. DENIES CHEST PAIN. VSS. PT HAS RESTED WELL. PT PLEASANT AND COOPERATIVE. NO ACUTE CHANGES SINCE AM ASSESSMENT. TOLERATING DIET. VOIDING AND STOOLING PER BATHROOM. CALL LIGHT WITHIN REACH. WILL CONTINUE TO MONITOR.
--- NOTE | 2019-09-25 19:10 | PC.NURSE ---
REPORT RECEIVED FROM Alcides VO RN AT THIS TIME.
--- NOTE | 2019-09-25 19:11 | PC.NURSE ---
report given to isabela
--- NOTE | 2019-09-25 20:40 | PC.NURSE ---
PT ASSESSED AT THIS TIME. NO EDEMA NOTED. FINE CRACKLES AT BASES OF LUNGS. PT DENIES ANY PAIN AT THIS TIME. RN WITNESSED PT USING IS AT THIS TIME. PT DENIES ANY FURTHER NEEDS. WILL CONTINUE TO OBSERVE.
--- NOTE | 2019-09-25 23:37 | PC.NURSE ---
IV FLUSHED AND SL AT THIS TIME. PT DENIES ANY NEEDS AT THIS TIME. WILL CONTINUE TO OBSERVE.
[2019-09-26] VITALS: BP 103/58; PULSE 84; RESP 18; TEMP 36.8; O2SAT 94
[2019-09-26 04:00] VITALS: BP 112/69; PULSE 88; RESP 18; TEMP 36.7; O2SAT 93
[2019-09-26 05:18] VITALS: BMI 21.5
[2019-09-26 05:38] VITALS: PULSE 92; PULSE 96; O2SAT 93
[2019-09-26 07:56] VITALS: BP 120/66; PULSE 72; RESP 20; TEMP 36.7; O2SAT 96
--- NOTE | 2019-09-26 08:05 | HMH.ACPN2 ---
Internal Medicine - PN: Subj *Date: 09/26/19 *Time: 08:05 Interval history: Patient feels better today and wants to go home. She has been off her oxygen since yesterday with adequate O2 sats. She feels her cough is minimal. She denies shortness of breath. She denies chest pain. She eats very little but states she is a picky eater and does not like hospital food. She ambulates without difficulty. Again she states she is not going to smoke. Discussed using nicotine patch. She is using the incentive spirometer several times every hour. Exam Vital signs and Labs for Last 24 Hours: Temp Pulse Resp BP Pulse Ox 98.0 F 72 20 120/66 96 09/26/19 07:56 09/26/19 07:56 09/26/19 07:56 09/26/19 07:56 09/26/19 07:56 I & O for Last 24 hours: Intake & Output 09/23/19 09/24/19 09/25/19 09/26/19 11:59 11:59 11:59 11:59 Intake Total 1474 / 1474 2884 / 2884 1068 / 1068 1200 / 1200 Output Total 701 / 701 800 / 800 620 / 620 800 / 800 Balance 773 / 773 2084 / 2084 448 / 448 400 / 400 Weight 114 lb 7 oz 114 lb 7.001 oz 114 lb 7.001 oz 117 lb 3 oz Microbiology Reports for the Last 24 Hours: Microbiology 09/23/19 00:50 Sputum - Expectorated Sputum Gram Stain - Final 09/23/19 00:50 Sputum - Expectorated Sputum Sputum Culture - Final Normal Respiratory Diann - Constitutional no acute distress Comments: Sitting up in the bed crosslegged. Appears comfortable. - *Routine Respiratory Exam Comments: Decreased breath sounds in left base with crackles in the right base. Coarse crackles in the left upper lobe anteriorly. - *Routine Cardiovascular Exam Present: RRR - *Routine Extremities Exam Present: pulses intact. Absent: edema, calf tenderness - *Routine Neurological Exam Present: alert, oriented X3 Assessment and Plan (1) Community acquired pneumonia Current visit: Yes Status: Acute Qualifiers: Laterality: left Lung location: unspecified part of lung Qualified Code(s): J18.9 - Pneumonia, unspecified organism Category: Medical Code(s): J18.9 - Pneumonia, unspecified organism (2) Respiratory failure Current visit: Yes Status: Acute Qualifiers: Chronicity: acute Respiratory failure complication: hypoxia Qualified Code(s): J96.01 - Acute respiratory failure with hypoxia Category: Medical Code(s): J96.90 - Respiratory failure, unspecified, unspecified whether with hypoxia or hypercapnia (3) Hyponatremia Current visit: Yes Status: Acute Category: Medical Code(s): E87.1 - Hypo-osmolality and hyponatremia (4) Sepsis Current visit: Yes Status: Acute Qualifiers: Sepsis type: sepsis due to unspecified organism Sepsis acute organ dysfunction status: with acute organ dysfunction Severe sepsis acute organ dysfunction type: acute respiratory failure Acute respiratory failure type: with hypoxia Severe sepsis shock status: without septic shock Qualified Code(s): A41.9 - Sepsis, unspecified organism; R65.20 - Severe sepsis without septic shock; J96.01 - Acute respiratory failure with hypoxia Category: Medical Code(s): A41.9 - Sepsis, unspecified organism (5) Acute exacerbation of chronic obstructive airways disease Current visit: No Status: Acute Category: Medical Code(s): J44.1 - Chronic obstructive pulmonary disease with (acute) exacerbation (6) Dyspnea and respiratory abnormalities Current visit: No Status: Resolved Category: Medical Code(s): R06.00 - Dyspnea, unspecified; R06.89 - Other abnormalities of breathing (7) Hypoxia Current visit: No Status: Resolved Category: Medical Code(s): R09.02 - Hypoxemia (8) Tobacco abuse Current visit: Yes Status: Acute Category: Medical Code(s): Z72.0 - Tobacco use (9) Hearing loss Current visit: Yes Status: Acute Category: Medical Code(s): H91.90 - Unspecified hearing loss, unspecified ear - Assessment and plan
--- NOTE | 2019-09-26 09:11 | P.PN_ITS ---
Internal Medicine - PN: Subj *Date: 09/26/19 *Time: 09:11 Exam Vital signs and Labs for Last 24 Hours: Temp Pulse Resp BP Pulse Ox 98.0 F 72 20 120/66 96 09/26/19 07:56 09/26/19 07:56 09/26/19 07:56 09/26/19 07:56 09/26/19 07:56 I & O for Last 24 hours: Intake & Output 09/23/19 09/24/19 09/25/19 09/26/19 23:59 23:59 23:59 23:59 Intake Total 2788 / 2788 2290 / 2290 948 / 948 600 / 600 Output Total 1501 / 1501 620 / 620 800 / 800 Balance 1287 / 1287 1670 / 1670 948 / 948 -200 / -200 Weight 51.908 kg 51.908 kg 51.908 kg 53.155 kg Microbiology Reports for the Last 24 Hours: Microbiology 09/23/19 00:50 Sputum - Expectorated Sputum Gram Stain - Final 09/23/19 00:50 Sputum - Expectorated Sputum Sputum Culture - Final Normal Respiratory Diann Assessment and Plan (1) Community acquired pneumonia Current visit: Yes Status: Acute Qualifiers: Laterality: left Lung location: unspecified part of lung Qualified Code(s): J18.9 - Pneumonia, unspecified organism Category: Medical Code(s): J18.9 - Pneumonia, unspecified organism (2) Respiratory failure Current visit: Yes Status: Acute Qualifiers: Chronicity: acute Respiratory failure complication: hypoxia Qualified Code(s): J96.01 - Acute respiratory failure with hypoxia Category: Medical Code(s): J96.90 - Respiratory failure, unspecified, unspecified whether with hypoxia or hypercapnia (3) Hyponatremia Current visit: Yes Status: Acute Category: Medical Code(s): E87.1 - Hypo- osmolality and hyponatremia (4) Sepsis Current visit: Yes Status: Acute Qualifiers: Sepsis type: sepsis due to unspecified organism Sepsis acute organ dysfunction status: with acute organ dysfunction Severe sepsis acute organ dysfunction type: acute respiratory failure Acute respiratory failure type: with hypoxia Severe sepsis shock status: without septic shock Qualified Code(s): A41.9 - Sepsis, unspecified organism; R65.20 - Severe sepsis without septic shock; J96.01 - Acute respiratory failure with hypoxia Category: Medical Code(s): A41.9 - Sepsis, unspecified organism (5) Acute exacerbation of chronic obstructive airways disease Current visit: No Status: Acute Category: Medical Code(s): J44.1 - Chronic obstructive pulmonary disease with (acute) exacerbation (6) Dyspnea and respiratory abnormalities Current visit: No Status: Resolved Category: Medical Code(s): R06.00 - Dyspnea, unspecified; R06.89 - Other abnormalities of breathing (7) Hypoxia Current visit: No Status: Resolved Category: Medical Code(s): R09.02 - Hypoxemia (8) Tobacco abuse Current visit: Yes Status: Acute Category: Medical Code(s): Z72.0 - Tobacco use (9) Hearing loss Current visit: Yes Status: Acute Category: Medical Code(s): H91.90 - Unspecified hearing loss, unspecified ear The patient's infection will respond to the chosen ABx?: Yes Is the patient receiving the right drug, dose, and route?: Yes Could a more targeted ABx be ordered?: No (WBC DECREASING, CONTINUE CURRENT ABX)
--- NOTE | 2019-09-26 11:34 | PC.NURSE ---
Spoke with Heidy @ primary care, Dr smith's nurse and questioned if pt was going to be d/cd today and she stated Dr. Smith had told her. No report from today in computer at this time from Dr. Smith. Awaiting update at this time.
[2019-09-26 11:39] VITALS: BP 114/65; PULSE 80; RESP 20; TEMP 36.4; O2SAT 96
--- NOTE | 2019-09-26 13:31 | HMH.PHAINT ---
DISCHARGE COUNSELING COMPLETED.
--- NOTE | 2019-09-26 14:20 | HMH.DCSUM ---
General - General Admission date:: 09/22/19 Discharge date: 09/26/19 HPI HPI: This 59-year-old white female was admitted with pneumonia. She stated that over the past 6 days she had progressive shortness of breath and fever and cough. The cough was mainly nonproductive. She had some left-sided pleuritic chest pain and some diarrhea. When she tried to get up morning of admission she passed out. She was concerned about the COVID-19 virus but had had no exposures to such. She tested negative for COVID-19 IgG and IgM in the emergency room the evening of admission. Her temperature was up to 103.7. She was smoking 1/2 pack of cigarettes per day. She presented to the emergency room at [facility] and was found to have an extensive left sided pneumonia. She is admitted for further evaluation and treatment. She was noted to have been admitted for a pneumonia 2 years ago. Hospital Course Hospital Course: On admission from the emergency room patient was placed on Rocephin and Zithromax IV for her pneumonia. She also received DuoNeb treatments. She had a NicoDerm patch placed daily and received potassium for hypokalemia. Clinically she did improve with less cough and no pleuritic pain. She did have a repeated chest x-ray which revealed some bilateral small pleural effusions although clinically she felt better. Initially CBC revealed a white blood cell count of 18,200 and did improve to 14,800. Her respiratory panel was negative which included negative flu A And B as well as a negative COVID-19. Sputum culture eventually revealed normal respiratory bryce and blood cultures were negative after 48 hours. On 09/25/2019 patient was feeling better with less cough and her breathing was stable. She was weaned from her oxygen. She was eating as usual and able to ambulate in the room without difficulty. On 09/26/2019 patient was ready to go home. Coughing was minimal and she remained off oxygen. Patient was discharged home in stable and satisfactory condition. She was to follow-up with Dr. Edilberto Paul on 09/29/2019. She was to use Pro Air inhaler twice daily and continue on antibiotic of Omnicef 300 mg twice daily. She was advised not to smoke. She readily agreed and planned cessation. Objective Vital signs: Temp Pulse Resp BP Pulse Ox 97.5 F L 80 20 114/65 96 09/26/19 11:39 09/26/19 11:39 09/26/19 11:39 09/26/19 11:39 09/26/19 11:39 Narrative: Exam Vital signs and Labs for Last 24 Hours: Temp Pulse Resp BP Pulse Ox 98.0 F 72 20 120/66 96 09/26/19 07:56 09/26/19 07:56 09/26/19 07:56 09/26/19 07:56 09/26/19 07:56 I & O for Last 24 hours: Intake & Output 09/23/19 09/24/19 09/25/19 09/26/19 11:59 11:59 11:59 11:59 Intake Total 1474 / 1474 2884 / 2884 1068 / 1068 1200 / 1200 Output Total 701 / 701 800 / 800 620 / 620 800 / 800 Balance 773 / 773 2084 / 2084 448 / 448 400 / 400 Weight 114 lb 7 oz 114 lb 7.001 oz 114 lb 7.001 oz 117 lb 3 oz Microbiology Reports for the Last 24 Hours: Microbiology 09/23/19 00:50 Sputum - Expectorated Sputum Gram Stain - Final 09/23/19 00:50 Sputum - Expectorated Sputum Sputum Culture - Final Normal Respiratory Bryce - Constitutional no acute distress Comments: Sitting up in the bed crosslegged. Appears comfortable. - *Routine Respiratory Exam Comments: Decreased breath sounds in left base with crackles in the right base. Coarse crackles in the left upper lobe anteriorly. - *Routine Cardiovascular Exam Present: RRR - *Routine Extremities Exam Present: pulses intact. Absent: edema, calf tenderness - *Routine Neurological Exam Present: alert, oriented X3 Results Completed studies during hospitalization [Text1]: Chest x-ray 09/22/2019 IMPRESSION: Extensive left-sided pneumonia Repeat chest x-ray 09/24/2019 IMPRESSION: No change left upper lobe
== END 2019-09-26 13:32 | disposition home or self-care (01) | DRG 193 ==
LOC: ER 17:37 → 2ND 19:05
PROVIDERS: Admitting Provider Family Medicine; Emergency Provider Emergency Medicine; Visit Provider Family Medicine
DX: J18.9 Pneumonia, unspecified organism (principal); J96.01 Acute respiratory failure with hypoxia; R65.20 Severe sepsis without septic shock; E87.1 Hypo-osmolality and hyponatremia; J44.1 Chronic obstructive pulmonary disease with (acute) exacerbation; Z72.0 Tobacco use
CPT/HCPCS: 36415; 71045; 71046; 80048; 80053; 82803; 83605; 85007; 85025; 85651; 86140; 86328; 87040; 87070; 87205; 87275; 87276; 87430; 87581; 87633; 87798; 94640; 94761; 96365; 96367; 99285; J0456

== ENCOUNTER → 2019-09-28 10:53 | Outpatient (CLI) | payer MEDICAID, SELFPAY ==
--- NOTE | 2019-09-28 11:01 | XR_ITS ---
PROCEDURE: XR CHEST 2V CLINICAL HISTORY: COMMUNITY ACQUIRED PNEUMONIA Follow-up pneumonia COMPARISON: CXR2V XR chest 2V from 04/15/2018 XR CHEST PORTABLE from 09/22/2019 XR CHEST 2V from 09/24/2019 FINDINGS: The cardiomediastinal silhouette and pulmonary vascularity are within normal limits. Left upper and left lower lobe pneumonia once again noted with bilateral pleural effusions. The consolidation appears somewhat improved compared to the previous exam. The effusions are not significantly changed. There is mild thoracic scoliosis convex right. No acute bony abnormalities. IMPRESSION: Persistent but improving left upper and left lower lobe pneumonia with persistent small bilateral effusions Dictated by: Hilario Means MD 09/28/2019 14:34 Electronically signed by Hilario Means MD in [place] 09/28/2019 14:34
== END ==
PROVIDERS: Visit Provider Family Medicine
DX: J18.9 Pneumonia, unspecified organism (principal)
CPT/HCPCS: 71046

== ENCOUNTER → 2019-10-10 11:54 | Outpatient (CLI) | payer MEDICAID, SELFPAY ==
--- NOTE | 2019-10-10 12:05 | XR_ITS ---
PROCEDURE: XR CHEST 2V CLINICAL HISTORY: LINGULAR PNEUMONIA COMPARISON: XR CHEST PORTABLE from 09/22/2019 XR CHEST 2V from 09/24/2019 XR CHEST 2V from 09/28/2019 FINDINGS: The cardiomediastinal silhouette and pulmonary vascularity are within normal limits. COPD. Continued left upper lobe pneumonia. Pneumonia within the lingula. Lingular left upper lobe pneumonia has shown some improvement. Left-sided pleural effusion has decreased in size. Focal increased density is present in the left mid to lower lung zone and may be related to the lingular consolidation. The right lung is clear aside from a calcified nodule in the right lower lobe. No acute bony abnormalities. IMPRESSION: Persistent but improving left-sided pneumonia with decrease in left effusion and resolved right effusion. Dictated by: Hilario Means MD 10/10/2019 14:06 Electronically signed by Hilario Means MD in [place] 10/10/2019 14:06
== END ==
PROVIDERS: PCP Family Medicine; Visit Provider Family Medicine
DX: J18.9 Pneumonia, unspecified organism (principal)
CPT/HCPCS: 71046

== ENCOUNTER 2024-01-17 14:55 | Outpatient (CLI) | payer OTHER, SELFPAY ==
--- NOTE | 2024-01-17 14:58 | XR_ITS ---
FINAL REPORT CLINICAL HISTORY: cough, congestion x 1 week COMPARISON: 10/10/2019 FINDINGS: 2 views of the chest were obtained . The heart is normal in size. The mediastinum is within normal limits. The lungs are clear. There is no pneumothorax. Osseous structures are unremarkable. IMPRESSION: No acute cardiopulmonary process. Reviewed, Interpreted and Dictated by Ned Sinha MD Transcribed by Argelia Lamar Authenticated and [facility]
[2024-01-17 18:14] LABS: Adenovirus,PCR Not Detected (NotDetected); Chlamydophila Pneumoniae, PCR Not Detected (NotDetected); Coronavirus 19, PCR Not Detected (NotDetected); Coronavirus 229E Not Detected (NotDetected); Coronavirus NL63 Not Detected (NotDetected); Coronavirus OC43 Not Detected (NotDetected); Coronovirus HKU1,PCR Not Detected (NotDetected); Human Metapneumovirus Not Detected (NotDetected); Influenza A, PCR Not Detected (NotDetected); Influenza AH1, 2009 Not Detected (NotDetected); Influenza AH1, PCR Not Detected (NotDetected); Influenza AH3,PCR Not Detected (NotDetected); Influenza B, PCR Not Detected (NotDetected); Mycoplasma Pneumoniae, PCR Not Detected (NotDetected); Parainfluenza 1, PCR Not Detected (NotDetected); Parainfluenza 2, PCR Not Detected (NotDetected); Parainfluenza 3, PCR Not Detected (NotDetected); Parainfluenza 4, PCR Not Detected (NotDetected); Respiratory Syncytial Virus Not Detected (NotDetected); Rhinovirus/Enterovirus Not Detected (NotDetected)
[2024-01-18 03:39] LABS: Bordetella Pertussis Detected (NotDetected)
== END 2024-01-17 23:59 | disposition home or self-care (01) ==
LOC: RAD 14:56
PROVIDERS: PCP Family Medicine; Visit Provider Student in an Organized Health Care Education/Training Program
DX: R05.9 Cough, unspecified (principal); R06.02 Shortness of breath
CPT/HCPCS: 71046; 87265; 87486; 87581; 87632; 87635

== ENCOUNTER 2024-02-15 14:35 | Outpatient (CLI) | payer OTHER, SELFPAY ==
--- NOTE | 2024-02-15 14:39 | XR_ITS ---
PROCEDURE INFORMATION: Exam: XR Chest Exam date and time: 02/15/2024 2:40 PM Age: 63 years old Clinical indication: Cough; Additional info: Cough, pleurisy, recent pertussis TECHNIQUE: Imaging protocol: Radiologic exam of the chest. Views: 2 views. COMPARISON: 1. CR XR CHEST 2V 01/17/2024 2:59 PM 2. CR XR CHEST 2V 10/10/2019 12:06 PM FINDINGS: Lungs: Interval development of airspace opacity in the left costophrenic angle. Lungs otherwise clear. Pleural spaces: Unremarkable. No pleural effusion. No pneumothorax. Heart/Mediastinum: Unremarkable. No cardiomegaly. Bones/joints: Unremarkable. IMPRESSION: Left basilar costophrenic angle region opacity may reflect developing pneumonic infiltrate and/or atelectasis. Advise short-term follow-up chest x-ray in 4-6 weeks to ensure resolution of this finding.
== END 2024-02-15 23:59 | disposition home or self-care (01) ==
LOC: RAD 14:37
PROVIDERS: PCP Family Medicine; Visit Provider Nurse Practitioner
DX: R05.9 Cough, unspecified (principal); J44.1 Chronic obstructive pulmonary disease with (acute) exacerbation; R07.81 Pleurodynia; F17.210 Nicotine dependence, cigarettes, uncomplicated
CPT/HCPCS: 71046

== ENCOUNTER 2024-02-29 15:24 | Outpatient (CLI) | payer OTHER, SELFPAY ==
--- NOTE | 2024-02-29 15:29 | XR_ITS ---
FINAL REPORT CLINICAL HISTORY: soa COMPARISON: None FINDINGS: Two views of the chest were obtained. The heart size and pulmonary vascularity are within normal limits. The mediastinum is normal. Mild left base opacities are present, atelectasis or pneumonia. There are large lung volumes and flattening of the hemidiaphragms consistent with changes of chronic obstructive pulmonary disease. There is a small left pleural effusion or pleural thickening present. There is no pneumothorax. The bony thorax is intact. IMPRESSION: Mild left base opacities, atelectasis or pneumonia. Small left pleural effusion or pleural thickening is present. Authenticated and [facility]
== END 2024-02-29 23:59 | disposition home or self-care (01) ==
LOC: RAD 15:25
PROVIDERS: PCP Family Medicine; Visit Provider Family Medicine
DX: R07.81 Pleurodynia (principal)
CPT/HCPCS: 71046